=== PATIENT | male | born 1965 | race African-American/Black ===

== ENCOUNTER 2023-02-11 15:27 | Emergency (ER) | payer SELFPAY ==
[~2023-02-11] VITALS: Ht 188 cm; Wt 82.0 kg
[2023-02-11 15:38] VITALS: BP 166/74; PULSE 102; RESP 16; TEMP 98.7; O2SAT 99
[2023-02-11] MEDS ORDERED: LORAZEPAM 1MG TABLET PO ONE (15:45)
[2023-02-11] MEDS ORDERED: RISPERIDONE 1MG TABLET PO SCH (15:45)
[2023-02-11] MEDS ORDERED: HALOPERIDOL LACTATE 5MG/ML VIAL IM ONE (18:00)
[2023-02-11 20:01] LABS: BASOPHILS % 0.8 % (0.0-2.0); HEMOGLOBIN. 14.1 g/dL (14.0-18.0); LYMPHOCYTES % 29.5 % (20.0-50.0); MEAN CORPUSCULAR HEMOGLOBIN 33.6 pg (28.0-32.0); MEAN CORPUSCULAR HGB CONC 34.4 g/dL (31.0-37.0); MEAN CORPUSCULAR VOLUME 97.6 fL (80.0-94.0); MEAN PLATELET VOLUME 7.3 fl (7.4-10.4); MONOCYTES % 8.1 % (2.0-8.0); NEUTROPHILS % 60.6 % (40.0-76.0); PLATELET 265 x1000/uL (130-400); RED CELL DISTRIBUTION WIDTH 14.9 % (11.6-14.6); WHITE BLOOD COUNT 6.8 x1000/uL (4.5-11.0)
[2023-02-11 20:06] LABS: CHLORIDE 101 mEq/L (98-107); INDEX HEMOLYSI 1 (1-3); INDEX ICTERIC 1 (1-4); INDEX LIPEMIC 1 (1-3); POTASSIUM 3.6 mEq/L (3.5-5.1); SODIUM 134 mEq/L (136-145)
[2023-02-11 20:13] LABS: ACETAMINOPHEN <2 ug/mL ug/mL (10-30); CARBON DIOXIDE 26 mEq/L (21-32); ETHANOL BLOOD < 10 mg/dL (<10); GLUCOSE 144 mg/dL (70-105); UREA NITROGEN BLOOD 11 mg/dL (7-21)
[2023-02-11] MEDS ORDERED: HALOPERIDOL LACTATE 5MG/ML VIAL IM NR (20:15)
== END 2023-02-11 22:12 | disposition home or self-care (01) ==
LOC: ER 15:27
DX: F15.90 Other stimulant use, unspecified, uncomplicated (principal); F20.9 Schizophrenia, unspecified
CPT/HCPCS: 80048; 80307; 80329; 80320; 85025; 36415; 99284; J1630; G0480